=== PATIENT | male | born 1950 | race Caucasian/White ===

== ENCOUNTER 2016-09-21 07:13 | Day surgery (SDC) | payer MEDICARE, BC ==
[2016-09-21] MEDS ORDERED: PROPOFOL 500 MG/50 ML EMU IV ONE (07:38)
[2016-09-21] MEDS ORDERED: LIDOCAINE HCL 1% MPF SOL ONE (07:39)
[2016-09-21 08:53] VITALS: BP 101/55; PULSE 53; RESP 18; TEMP 97.3; O2SAT 100
== END 2016-09-21 09:20 | disposition home or self-care (01) | DRG 951 ==
LOC: SURG 07:13
PROVIDERS: ATTEND Surgery
DX: Z12.11 Encounter for screening for malignant neoplasm of colon (principal)
CPT/HCPCS: J2001; J2704